=== PATIENT | male | born 1985 | race Caucasian/White ===

== ENCOUNTER → 2016-07-02 | Outpatient (CLI) | payer OTHER ==
--- NOTE | 2016-07-02 16:33 | XR ---
EXAMINATION TYPE: XR chest 2V DATE OF EXAM: 07/02/2016 4:27 PM COMPARISON: 01/19/2014 INDICATION: Chest pain TECHNIQUE: Single frontal view of the chest is obtained. FINDINGS: The heart size is normal. The pulmonary vasculature is normal. The lungs are clear. Sternotomy wires are in the midline. IMPRESSION: 1. No acute pulmonary process.
== END | disposition home or self-care (01) ==
LOC: RADXRMAIN 16:11
PROVIDERS: ATTEND Family Medicine
DX: R07.9 Chest pain, unspecified (principal)
CPT/HCPCS: 71020

== ENCOUNTER → 2016-07-05 | Outpatient (CLI) | payer OTHER ==
[2016-07-05 11:14] LABS: CH 30.4; CHCM 34.5; HCT 49.5 % (39.0-53.0); HDW 2.78; HGB 16.5 gm/dL (13.0-17.5); MCH 29.5 pg (25.0-35.0); MCHC 33.3 g/dL (31.0-37.0); MCV 88.4 fL (80.0-100.0); Mean Platelet Volume 6.8; RDW 13.1 % (11.5-15.5); WBC 4.3 k/uL (3.8-10.6)
[2016-07-05 11:24] LABS: ALT 70 U/L (21-72); AST 39 U/L (17-59); Alkaline Phosphatase 80 U/L (38-126); Anion Gap 10 mmol/L; Blood Urea Nitrogen 15 mg/dL (9-20); Calcium 9.8 mg/dL (8.4-10.2); Carbon Dioxide 27 mmol/L (22-30); Chloride 104 mmol/L (98-107); Cholesterol 233 mg/dL (<200); Creatine Kinase 130 U/L (55-170); Glucose 94 mg/dL (74-99); HDL Cholesterol 53 mg/dL (40-60); LDH 585 U/L (313-618); Non-African American GFR(MDRD) >60 (>60 ml/min/1.73 sqM); Potassium 4.4 mmol/L (3.5-5.1); Sodium 141 mmol/L (137-145); Total Bilirubin 0.8 mg/dL (0.2-1.3); Total Protein 7.6 g/dL (6.3-8.2); Triglycerides 164 mg/dL (<150)
== END ==
LOC: LABWHC1 10:42
PROVIDERS: ATTEND Family Medicine
DX: R07.9 Chest pain, unspecified (principal)
CPT/HCPCS: 36415; 80053; 80061; 82550; 83615; 84443; 84484; 85027

== ENCOUNTER 2016-11-16 17:20 | Emergency (ER) | payer OTHER ==
[2016-11-16] MEDS ORDERED: SODIUM CHLORIDE 0.9% 1,000 ML IV STA (17:41)
[2016-11-16] MEDS ORDERED: KETOROLAC 30 MG/ML 1 ML VIAL IVP STA (17:41)
--- NOTE | 2016-11-16 17:46 | ED ---
Chest Pain HPI - General Chief Complaint: Chest Pain Stated Complaint: Chest Pain Time Seen by Provider: 11/16/16 17:33 Source: patient Mode of arrival: wheelchair Limitations: no limitations - History of Present Illness Initial Comments: 28-year-old male with history of thoracic surgery for a cancerous tumor states that he's had some intermittent chest pain for the past month. Patient reports that starting on the right side underneath his pectoral muscle. He reports he size primary care doctor in urgent care who sent him here. They're concerned he may have a blood clot. He denies any shortness of breath. He does have a mild cough but is a smoker. He states that the pain occasionally radiate around towards his right shoulder. He denies any nausea or vomiting or abdominal pain. Patient reports that they use no specific movements that cause the pain to be worse. He has no sore throat, no dysphagia, no fever or chills. Patient rates the pain as a 3 out of 10 however starting times it will become a 5 out of 10. - Related Data Home Medications Medication Instructions Recorded Confirmed Ranitidine HCl [Zantac] 150 mg PO DAILY 01/19/14 10/11/15 Previous Rx's Medication Instructions Recorded Ibuprofen [Motrin] 600 mg PO Q6HR PRN #15 tab 11/16/16 methylPREDNISolone Dose Pack 4 mg PO DIRECTED #21 package 11/16/16 [Medrol Dose Pack] Allergies Allergy/AdvReac Type Severity Reaction Status Date / Time No Known Allergies Allergy Verified 11/16/16 17:34 Review of Systems ROS Statement: Those systems with pertinent positive or pertinent negative responses have been documented in the HPI. ROS Other: All systems not noted in ROS Statement are negative. EKG Findings - EKG Comments: EKG Findings:: EKG shows a sinus rhythm. Possible left atrial enlargement. Ventricular rate of 76 bpm. Verbal 166 ms. QRS ration 96 ms. QT QTc is 34/ 432 ms. No evidence of ST elevation or T-wave inversion. No intubation or ventricular arrhythmias. 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 No acute distress. Limitations: no limitations General appearance: alert, in no apparent distress Head exam: Present: atraumatic Eye exam: Present: normal appearance, PERRL, EOMI. Absent: scleral icterus, conjunctival injection, periorbital swelling ENT exam: Present: normal exam, mucous membranes moist Neck exam: Present: normal inspection. Absent: tenderness, meningismus, lymphadenopathy Respiratory exam: Present: normal lung sounds bilaterally. Absent: respiratory distress, wheezes, rales, rhonchi, stridor Cardiovascular Exam: Present: regular rate, normal rhythm, normal heart sounds. Absent: systolic murmur, diastolic murmur, rubs, gallop, clicks GI/Abdominal exam: Present: soft, normal bowel sounds. Absent: distended, tenderness, guarding, rebound, rigid Extremities exam: Present: normal inspection, full ROM, normal capillary refill. Absent: tenderness, pedal edema, joint swelling, calf tenderness Back exam: Present: normal inspection Neurological exam: Present: alert, oriented X3, CN II-XII intact Psychiatric exam: Present: normal affect, normal mood Skin exam: Present: warm, dry, intact, normal color. Absent: rash Course Vital Signs 11/16/16 11/16/16 11/16/16 17:25 17:50 19:18 Temperature 97.9 F 98.7 F Pulse Rate 81 80 71 Respiratory 20 18 18 Rate Blood Pressure 123/71 129/73 146/65 O2 Sat by Pulse 99 98 98 Oximetry Chest Pain MDM - MDM 28-year-old male with history of thoracic surgery for a cancerous tumor states that he's had some intermittent chest pain for the past month. Patient reports that starting on the right side underneath his pectoral muscle. He reports he size primary care doctor in urgent care who sent him here. They're concerned he may have a blood clot. He denies any shortness of breath. He does have a mild cough but is a smoker. He states that the pain occasionally radiate around towards his right shoulder. He denies any nausea or vomiting or abdominal pain. His x-rays are reviewed and normal. No evidence of any acute changes. Patient' s lab work was reviewed and shows no evidence of any acute process. D-dimer and cardiac enzymes are negative. Given the length of symptoms if there was concern for blood clot or any other issues and lab work at this time. Patient reports that he occasionally feels like a sharp shooting pain rates from his right axilla for distress. Discussed it could be some neuropathy underlying scar tissue inflammation from his previous surgery. Patient will be discharged with steroids and temperature medicine. Discussed close follow-up with primary care provider. Patient agrees to treatment plan will comply. Return parameters were discussed. Disposition Clinical Impression: Atypical chest pain, Costochondral chest pain Disposition: HOME SELF-CARE Condition: Good Instructions: Costochondritis (ED), Chest Pain (ED) Additional Instructions: Patient denies follow-up with primary care provider. Take medications as prescribed. Return to the emergency department if any alarming signs or symptoms occur. Prescriptions: Ibuprofen [Motrin] 600 mg PO Q6HR PRN #15 tab PRN Reason: Pain methylPREDNISolone Dose Pack [Medrol Dose Pack] 4 mg PO DIRECTED #21 package Referrals: Darío Ojeda DO [Primary Care Provider] - 1-2 days Time of Disposition: 19:25
[2016-11-16 17:52] VITALS: RESP 18
[2016-11-16 18:05] LABS: Basophils # (A) 0.1 k/uL (0-0.2); Basophils % (A) 1 %; CHCM 35.2; Eosinophils # (A) 0.1 k/uL (0-0.7); Eosinophils % (A) 2 %; HCT 46.6 % (39.0-53.0); HDW 2.76; HGB 16.5 gm/dL (13.0-17.5); Luc # (Auto) 0.17; Luc % (Auto) 3; Lymphocytes # (A) 1.7 k/uL (1.0-4.8); Lymphocytes % (A) 28 %; MCH 30.4 pg (25.0-35.0); MCHC 35.5 g/dL (31.0-37.0); MCV 85.6 fL (80.0-100.0); Mean Platelet Volume 6.7; Monocytes # (A) 0.6 k/uL (0-1.0); Monocytes % (A) 11 %; Neutrophils # (A) 3.2 k/uL (1.3-7.7); Neutrophils % (A) 55 %; RBC 5.44 m/uL (4.30-5.90); RDW 13.1 % (11.5-15.5); WBC 5.9 k/uL (3.8-10.6); WBC (Perox) 5.89
[2016-11-16 18:11] LABS: ALT 76 U/L (21-72); AST 36 U/L (17-59); Alkaline Phosphatase 96 U/L (38-126); Amylase 48 U/L (30-110); Anion Gap 9 mmol/L; Blood Urea Nitrogen 16 mg/dL (9-20); Calcium 9.7 mg/dL (8.4-10.2); Carbon Dioxide 26 mmol/L (22-30); Chloride 103 mmol/L (98-107); Glucose 83 mg/dL (74-99); Magnesium 2.2 mg/dL (1.6-2.3); Non-African American GFR(MDRD) >60 (>60 ml/min/1.73 sqM); Potassium 4.2 mmol/L (3.5-5.1); Sodium 138 mmol/L (137-145); Total Bilirubin 0.4 mg/dL (0.2-1.3); Total Protein 7.2 g/dL (6.3-8.2)
[2016-11-16 18:17] LABS: Partial Thromboplastin Time 25.5 sec (22.0-30.0); Prothrombin Time 10.2 sec (9.0-12.0)
[2016-11-16 18:21] LABS: Creatine Kinase 138 U/L (55-170)
[2016-11-16 18:34] LABS: Creatine Kinase MB 1.3 ng/mL (0.0-2.4); Troponin I <0.012 ng/mL (0.000-0.034)
--- NOTE | 2016-11-16 18:35 | XR ---
EXAMINATION TYPE: XR chest 2V DATE OF EXAM: 11/16/2016 COMPARISON: 07/02/2016 HISTORY: Chest pain TECHNIQUE: Frontal and lateral views of the chest are obtained. FINDINGS: Heart and mediastinum are normal. Lungs are clear. Diaphragm is normal. There are sternal wires. Bony thorax is intact. There are chest leads. IMPRESSION: Normal chest. No change.
[2016-11-16 19:19] VITALS: BP 146/65; TEMP 98.7
[2016-11-16 19:38] VITALS: PULSE 75
== END 2016-11-16 19:38 | disposition home or self-care (01) ==
LOC: EC 17:20
DX: R07.89 Other chest pain (principal); Z79.899 Other long term (current) drug therapy; Z87.891 Personal history of nicotine dependence
CPT/HCPCS: 99285; 96374; 96361; 36415; 93005; 85379; 83880; 80053; 82150; 82550; 82553; 83690; 83735; 84484; 85025; 85610; 85730; 71020; J1885

== ENCOUNTER 2017-05-17 18:28 | Emergency (ER) | payer OTHER ==
[2017-05-17] MEDS ORDERED: ASPIRIN 81 MG PO STA (18:36)
[2017-05-17 18:58] LABS: Basophils # (A) 0.1 k/uL (0-0.2); Basophils % (A) 1 %; Eosinophils # (A) 0.1 k/uL (0-0.7); Eosinophils % (A) 3 %; HCT 50.8 % (39.0-53.0); HGB 16.2 gm/dL (13.0-17.5); Lymphocytes # (A) 1.5 k/uL (1.0-4.8); Lymphocytes % (A) 26 %; MCH 28.7 pg (25.0-35.0); MCHC 31.9 g/dL (31.0-37.0); Mean Platelet Volume 7.3; Monocytes # (A) 0.6 k/uL (0-1.0); Monocytes % (A) 11 %; Neutrophils # (A) 3.2 k/uL (1.3-7.7); Neutrophils % (A) 57 %; Platelet Count 232 k/uL (150-450); RBC 5.64 m/uL (4.30-5.90); RDW 14.3 % (11.5-15.5); WBC 5.6 k/uL (3.8-10.6)
[2017-05-17 19:06] LABS: ALT 69 U/L (21-72); AST 34 U/L (17-59); Albumin 4.3 g/dL (3.5-5.0); Alkaline Phosphatase 83 U/L (38-126); Anion Gap 9 mmol/L; Blood Urea Nitrogen 15 mg/dL (9-20); Calcium 9.6 mg/dL (8.4-10.2); Carbon Dioxide 27 mmol/L (22-30); Chloride 104 mmol/L (98-107); Glucose 88 mg/dL (74-99); Lipase 217 U/L (23-300); Magnesium 2.2 mg/dL (1.6-2.3); Potassium 4.1 mmol/L (3.5-5.1); Sodium 140 mmol/L (137-145); Total Bilirubin 0.3 mg/dL (0.2-1.3); Total Protein 7.3 g/dL (6.3-8.2)
--- NOTE | 2017-05-17 19:08 | XR ---
EXAMINATION TYPE: XR chest 2V DATE OF EXAM: 05/17/2017 COMPARISON: 11/16/2016 HISTORY: Chest pain TECHNIQUE: Frontal and lateral views of the chest are obtained. FINDINGS: Heart and mediastinum are normal. Lungs are clear. There are sternal wires. There are ches t leads. Costophrenic angles are clear. IMPRESSION: No active cardiopulmonary disease. Normal heart. No change.
[2017-05-17 19:16] LABS: Creatine Kinase 104 U/L (55-170)
[2017-05-17 19:24] LABS: D-Dimer 0.2 mg/L FEU (<0.60)
[2017-05-17 19:28] LABS: INR 1.1 (<1.2); Partial Thromboplastin Time 25.4 sec (22.0-30.0); Prothrombin Time 10.6 sec (9.0-12.0)
[2017-05-17 19:29] LABS: Creatine Kinase MB 0.6 ng/mL (0.0-2.4); Troponin I <0.012 ng/mL (0.000-0.034)
[2017-05-17] MEDS ORDERED: RX INFO: IV CONTRAST WAS GIVEN 1 EACH MISC MISCELLANE PRN (19:33)
--- NOTE | 2017-05-17 19:41 | ED ---
Chest Pain HPI - General Chief Complaint: Chest Pain Stated Complaint: Chest pain Time Seen by Provider: 05/17/17 18:36 Source: patient, RN notes reviewed Mode of arrival: wheelchair Limitations: no limitations - History of Present Illness Initial Comments: 31-year-old male presents emergency Department chief complaint chest pain. Patient states she's been having on and off chest pain last 1 week. Patient states he has a pressure sinus left side with a sharp stabbing occasional pain. He states it's nonradiating. Patient states he went to urgent care today he had chest x-ray EKG which was unremarkable center for further evaluation. Patient states that he has a history of Bactrim so cancer and states that he had a mass removed from his chest by Dr. Short 9 years ago. He has had no recent chest x-ray other than the one today and no recent CTs. Patient states his been trying to get into [facility]call though he has not been able to. Patient denies any associated shortness breath, nausea, vomiting diarrhea constipation. No fevers or chills. Patient states that he does have a family history of heart disease. Patient states his former smoker. - Related Data Home Medications Medication Instructions Recorded Confirmed Ranitidine HCl [Zantac] 150 mg PO DAILY 01/19/14 05/17/17 Cyanocobalamin [Vitamin B-12] 500 mcg PO DAILY 05/17/17 05/17/17 Multivitamins, Thera [Multivitamin 1 tab PO DAILY 05/17/17 05/17/17 (formulary)] Allergies Allergy/AdvReac Type Severity Reaction Status Date / Time No Known Allergies Allergy Verified 05/17/17 18:51 Review of Systems ROS Statement: Those systems with pertinent positive or pertinent negative responses have been documented in the HPI. ROS Other: All systems not noted in ROS Statement are negative. 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 Absent: tenderness, meningismus, lymphadenopathy Respiratory exam: Present: normal lung sounds bilaterally, chest wall tenderness. Absent: respiratory distress, wheezes, rales, rhonchi, stridor Cardiovascular Exam: Present: regular rate, normal rhythm, normal heart sounds. Absent: systolic murmur, diastolic murmur, rubs, gallop, clicks Back exam: Absent: CVA tenderness (R), CVA tenderness (L) Skin exam: Present: warm, dry, intact, normal color. Absent: rash Course Vital Signs 05/17/17 05/17/17 05/17/17 18:31 18:49 20:02 Temperature 97.1 F L Pulse Rate 73 70 75 Respiratory 18 16 181 H Rate Blood Pressure 139/77 126/78 128/78 O2 Sat by Pulse 98 99 98 Oximetry Chest Pain MDM - MDM 31-year-old male present emergency department for chest pain on and off for last week. Patient had extensive workup here including chest x-ray, EKG, lab work and CT of the chest. There is no acute abnormality's. Most likely is pleurisy versus costochondritis. This is an atypical chest pain and patient will be discharged. Case discussed with Dr. David. I do recommend patient follow-up with primary care physician and persists he may need further evaluation with parathoracic as ceasing them in the past or discuss possible echo/Stress test if concerns for cardiac. Disposition Clinical Impression: Atypical chest pain Disposition: HOME SELF-CARE Condition: Stable Instructions: Chest Pain (ED) Additional Instructions: Please return to the Emergency Department if symptoms worsen or any other concerns. Referrals: Darío Ojeda DO [Primary Care Provider] - 1-2 days Time of Disposition: 20:32
--- NOTE | 2017-05-17 20:12 | CT ---
EXAMINATION TYPE: CT chest angio for PE DATE OF EXAM: 05/17/2017 COMPARISON: NONE HISTORY: SOB and chest tightness x1 week. CT DLP: 363.6 mGycm Automated exposure control for dose reduction was used. CONTRAST: CT Chest for pulmonary embolism performed with with IV Contrast, patient injected with 78 mL of Omnip aque 300. There are 3-D post processed images. FINDINGS: The lungs are clear of infiltrate. There is no evidence of a pulmonary mass. There is no pleural effu andrez. There is no pericardial effusion. There is no sign of aortic aneurysm or dissection. There is no evidence of a filling defect in the pulmonary arteries. There is no mediastinal adenopath y. There are no hilar masses. The bony thorax is intact. IMPRESSION: Negative CT angiogram of the chest. No evidence of pulmonary embolism.
[2017-05-17 20:45] VITALS: RESP 18
[2017-05-17 20:47] VITALS: BP 124/61; PULSE 73; TEMP 97
== END 2017-05-17 20:45 | disposition home or self-care (01) ==
LOC: EC 18:28
DX: R07.89 Other chest pain (principal); Z85.118 Personal history of other malignant neoplasm of bronchus and lung; Z85.89 Personal history of malignant neoplasm of other organs and systems; Z87.891 Personal history of nicotine dependence; Z79.899 Other long term (current) drug therapy
CPT/HCPCS: 36415; 93005; 85379; 80053; 82550; 82553; 83690; 83735; 84484; 85025; 85610; 85730; 71046; 71275; 99285; Q9967

== ENCOUNTER 2018-03-20 20:52 | Emergency (ER) | payer OTHER ==
[2018-03-20] MEDS ORDERED: SODIUM CHLORIDE 0.9% 1,000 ML IV STA (22:14)
[2018-03-20 22:46] LABS: Basophils % (A) 1 %; Eosinophils # (A) 0.2 k/uL (0-0.7); Eosinophils % (A) 3 %; HCT 46.7 % (39.0-53.0); HGB 16.3 gm/dL (13.0-17.5); Lymphocytes # (A) 1.4 k/uL (1.0-4.8); Lymphocytes % (A) 27 %; MCH 30.3 pg (25.0-35.0); MCHC 34.9 g/dL (31.0-37.0); MCV 86.8 fL (80.0-100.0); Monocytes # (A) 0.4 k/uL (0-1.0); Monocytes % (A) 8 %; Neutrophils # (A) 3.1 k/uL (1.3-7.7); Neutrophils % (A) 60 %; Platelet Count 220 k/uL (150-450); RBC 5.38 m/uL (4.30-5.90); RDW 12.9 % (11.5-15.5); WBC 5.1 k/uL (3.8-10.6)
[2018-03-20 22:55] LABS: ALT 77 U/L (21-72); AST 54 U/L (17-59); Albumin 4.2 g/dL (3.5-5.0); Alkaline Phosphatase 83 U/L (38-126); Anion Gap 8 mmol/L; Blood Urea Nitrogen 15 mg/dL (9-20); Calcium 9.8 mg/dL (8.4-10.2); Carbon Dioxide 28 mmol/L (22-30); Chloride 105 mmol/L (98-107); Glucose 113 mg/dL (74-99); Lipase 98 U/L (23-300); Potassium 4.1 mmol/L (3.5-5.1); Sodium 141 mmol/L (137-145); Total Bilirubin 0.5 mg/dL (0.2-1.3); Total Protein 7.2 g/dL (6.3-8.2)
--- NOTE | 2018-03-20 23:26 | ED ---
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 Patient reports that for the past few weeks is been experiencing right-sided abdominal pain. He was evaluated in our emergency department last week had labs and a computed tomography scan with no acute findings. Patient followed up with his primary care but today had persistent pain so came back for reevaluation. states that given his history of a malignant cancer he is very anxious about having any abdominal pain. He describes the pain is a constant ache in his right upper quadrant occasion the right lower quadrant with occasional episodes of stabbing. The pain is not associated with nausea, vomiting. The pain doesn't seem to be related to when or what he eats. He's had no change in bowel or bladder habits. No fevers or chills. He denies any associated complaints. - Related Data Home Medications Medication Instructions Recorded Confirmed Omeprazole Magnesium [PriLOSEC OTC] 20 mg PO DAILY PRN 03/15/18 03/15/18 Previous Rx's Medication Instructions Recorded Famotidine [Pepcid] 20 mg PO DAILY #30 tablet 03/15/18 Allergies Allergy/AdvReac Type Severity Reaction Status Date / Time No Known Allergies Allergy Verified 03/20/18 21:12 Review of Systems ROS Statement: Those systems with pertinent positive or pertinent negative responses have been documented in the HPI. ROS Other: All systems not noted in ROS Statement are negative. Past Medical History Past Medical History: Cancer Additional Past Medical History / Comment(s): CANCER- germ cell carcinoma History of Any Multi-Drug Resistant Organisms: None Reported Past Surgical History: No Surgical Hx Reported Additional Past Surgical History / Comment(s): MALIGNANT TUMOR REMOVED FROM CHEST CAVITY, RIGHT LUNG Past Psychological History: Anxiety Smoking Status: Former smoker Past Alcohol Use History: Occasional Past Drug Use History: None Reported General Exam - General Exam Comments Initial Comments: Physical Exam GENERAL: Patient is well-developed and well-nourished. Patient is nontoxic and well- hydrated and is in no distress. HENT: Normocephalic, Atraumatic. EYES: PERRL, EOMI PULMONARY: Unlabored respirations. No audible rales rhonchi or wheezing was noted. CARDIOVASCULAR: There is a regular rate and rhythm without any murmurs gallops or rubs. ABDOMEN: Soft and nontender with normal bowel sounds. SKIN: Skin is clear with no lesions or rashes and otherwise unremarkable. : Deferred NEUROLOGIC: Patient is alert and oriented x3. Moving all extremities spontaneously MUSCULOSKELETAL: Normal extremities with adequate strength and full range of motion. No lower extremity swelling or edema. No calf tenderness. PSYCHIATRIC: Normal psychiatric evaluation. Limitations: no limitations Limitations: no limitations Course Vital Signs 03/20/18 03/21/18 21:10 01:54 Temperature 98.0 F 98.3 F Pulse Rate 93 71 Respiratory 18 19 Rate Blood Pressure 134/77 125/92 O2 Sat by Pulse 98 99 Oximetry Medical Decision Making - Medical Decision Making Patient was seen and evaluated, history was obtained from patient Repeat labs were ordered Ultrasound of the gallbladder was ordered Labs and ultrasound were unremarkable Results were discussed with the patient who is resting comfortably and feels reassured area and I discussed with patient the possibility that this is related to GERD or ulcer disease, I recommended she needed a PPI he started last week, maintain a bland diet, avoid spicy or irritating foods and follow up with gastroenterology for possible endoscopy. Patient is agreeable. Return parameters were discussed patient discharged home in stable condition. - Lab Data Result diagrams: 03/20/18 22:30 03/20/18 22:30 Lab Results 03/20/18 03/20/18 03/20/18 Range/Units 22:30 22:30 22:35 WBC 5.1 (3.8-10.6) k/uL RBC 5.38 (4.30-5.90) m/uL Hgb 16.3 (13.0-17.5) gm/dL Hct 46.7 (39.0-53.0) % MCV 86.8 (80.0-100.0) fL MCH 30.3 (25.0-35.0) pg MCHC 34.9 (31.0-37.0) g/dL RDW 12.9 (11.5-15.5) % Plt Count 220 (150-450) k/uL Neutrophils % 60 % Lymphocytes % 27 % Monocytes % 8 % Eosinophils % 3 % Basophils % 1 % Neutrophils # 3.1 (1.3-7.7) k/uL Lymphocytes # 1.4 (1.0-4.8) k/uL Monocytes # 0.4 (0-1.0) k/uL Eosinophils # 0.2 (0-0.7) k/uL Basophils # 0.0 (0-0.2) k/uL Sodium 141 (137-145) mmol/L Potassium 4.1 (3.5-5.1) mmol/L Chloride 105 (98-107) mmol/L Carbon Dioxide 28 (22-30) mmol/L Anion Gap 8 mmol/L BUN 15 (9-20) mg/dL Creatinine 0.83 (0.66-1.25) mg/dL Est GFR (CKD-EPI)AfAm >90 (>60 ml/min/1.73 sqM) Est GFR (CKD-EPI)NonAf >90 (>60 ml/min/1.73 sqM) Glucose 113 H (74-99) mg/dL Calcium 9.8 (8.4-10.2) mg/dL Total Bilirubin 0.5 (0.2-1.3) mg/dL AST 54 (17-59) U/L ALT 77 H (21-72) U/L Alkaline Phosphatase 83 (38-126) U/L Total Protein 7.2 (6.3-8.2) g/dL Albumin 4.2 (3.5-5.0) g/dL Lipase 98 (23-300) U/L Urine Color Yellow Urine Appearance Clear (Clear) Urine pH 6.5 (5.0-8.0) Ur Specific Wallace 1.014 (1.001-1.035) Urine Protein Negative (Negative) Urine Glucose (UA) Negative (Negative) Urine Ketones Negative (Negative) Urine Blood Negative (Negative) Urine Nitrite Negative (Negative) Urine Bilirubin Negative (Negative) Urine Urobilinogen <2.0 (<2.0) mg/dL Ur Leukocyte Esterase Negative (Negative) Disposition Clinical Impression: Abdominal pain Disposition: HOME SELF-CARE Condition: Good Instructions: Abdominal Pain (ED) Is patient prescribed a controlled substance at d/c from ED?: No Referrals: Darío Ojeda DO [Primary Care Provider] - 1-2 days Braeden Cortez MD [STAFF PHYSICIAN] - 1-2 days Time of Disposition: 01:05
[2018-03-20 23:27] LABS: Appearance,Urine Clear (Clear); Bilirubin,Urine Negative (Negative); Blood,Urine Negative (Negative); Color,Urine Yellow; Glucose,Urine (UA) Negative (Negative); Ketones,Urine Negative (Negative); Leukocyte Esterase,Urine Negative (Negative); Nitrite,Urine Negative (Negative); PH, Urine 6.5 (5.0-8.0); Protein,Urine Negative (Negative); Specific Gravity,Urine 1.014 (1.001-1.035); Urobilinogen,Urine <2.0 mg/dL (<2.0)
--- NOTE | 2018-03-21 00:37 | US ---
EXAMINATION TYPE: US gallbladder DATE OF EXAM: 03/21/2018 COMPARISON: NONE CLINICAL HISTORY: Pain. Pain EXAM MEASUREMENTS: Liver Length: 16.8 cm Gallbladder Wall: 0.2 cm CBD: 0.3 cm Right Kidney: 11.4 x 4.7 x 4.6 cm Pancreas: Obscured by bowel gas Liver: wnl Gallbladder: wnl Evidence for sonographic Sebastian's sign: No CBD: wnl Right Kidney: wnl IMPRESSION: Negative right upper quadrant ultrasound exam. No gallstones or dilated ducts.
[2018-03-21 02:02] VITALS: BP 125/92; PULSE 71; RESP 19; TEMP 98.3
--- NOTE | 2018-03-21 15:08 | XR ---
EXAMINATION TYPE: XR KUB DATE OF EXAM: 03/20/2018 COMPARISON: 10/21/2009 HISTORY: Right flank pain TECHNIQUE: 2 views FINDINGS: There is no sign of intestinal obstruction or pneumoperitoneum. Fecal pattern is normal. Albina ng bases are clear. There are no pathologic calcifications over the kidneys. IMPRESSION: Nonacute abdomen. No adverse change.
== END 2018-03-21 01:54 | disposition home or self-care (01) ==
LOC: EC 20:52
DX: R10.11 Right upper quadrant pain (principal); R10.31 Right lower quadrant pain; Z87.891 Personal history of nicotine dependence; Z85.47 Personal history of malignant neoplasm of testis; Z98.890 Other specified postprocedural states
CPT/HCPCS: 36415; 74018; 76705; 80053; 81003; 83690; 85025; 96360; 96361; 99284

== ENCOUNTER 2023-02-19 15:59 | Emergency (ER) | payer OTHER ==
[2023-02-19 16:20] VITALS: BP 142/95; PULSE 86; RESP 18; TEMP 98
[2023-02-19] MEDS ORDERED: FAMOTIDINE 20 MG/2 ML VIAL IV STA (16:27)
[2023-02-19] MEDS ORDERED: ONDANSETRON 4 MG/2 ML VIAL IVP STA (16:27)
[2023-02-19] MEDS ORDERED: SODIUM CHLORIDE 0.9% 1,000 ML IV STA (16:27)
--- NOTE | 2023-02-19 16:48 | ED ---
Recheck HPI - General Chief Complaint: Recheck/Abnormal Lab/Rx Stated Complaint: ingest walnut husk-Dizziness, lethargic Time Seen by Provider: 02/19/23 16:10 Source: patient, RN notes reviewed Mode of arrival: ambulatory Limitations: no limitations - History of Present Illness Initial Comments: This is a 37 year old male who presents to the emergency department for walnut husk ingestion. States that he was looking at videos online saying that ingesting walnuts offered multiple health benefits. He proceeded to do this and states that he consumed about half of the shell and started to feel very ill and nauseous. He does not feel like it got stuck in his throat. States that he feels "high". He did research on this and found that Juglone was a potentially toxic ingredient in walnut shells, and is concerned about exposure to that. Denies any specific abdominal pain, chest pain, or shortness of breath. - Related Data Home Medications Medication Instructions Recorded Confirmed Omeprazole Magnesium [PriLOSEC OTC] 20 mg PO DAILY PRN 03/15/18 03/15/18 Previous Rx's Medication Instructions Recorded Famotidine [Pepcid] 20 mg PO DAILY #30 tablet 03/15/18 Allergies Allergy/AdvReac Type Severity Reaction Status Date / Time No Known Allergies Allergy Verified 02/19/23 16:09 Review of Systems ROS Statement: Those systems with pertinent positive or pertinent negative responses have been documented in the HPI. ROS Other: All systems not noted in ROS Statement are negative. 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 Absent: respiratory distress, wheezes, rales, rhonchi, stridor Cardiovascular Exam: Present: regular rate, normal rhythm, normal heart sounds. Absent: systolic murmur, diastolic murmur, rubs, gallop, clicks GI/Abdominal exam: Present: soft, normal bowel sounds. Absent: distended, tenderness, guarding, rebound, rigid Neurological exam: Present: alert, oriented X3, CN II-XII intact Psychiatric exam: Present: normal affect, normal mood Skin exam: Present: warm, dry, intact, normal color. Absent: rash Course Vital Signs 02/19/23 16:07 Temperature 98 F Pulse Rate 86 Respiratory 18 Rate Blood Pressure 142/95 O2 Sat by Pulse 99 Oximetry Medical Decision Making - Medical Decision Making This is a 37-year-old male who presents to the emergency department for nausea from walnut husk ingestion. Was pt. sent in by a medical professional or institution? @ -No Did you speak to anyone other than the patient for history? @ -No Did you review nursing and triage notes? @ -Yes, and I agree, it is accurate with regards to the patient's symptoms. Were old charts reviewed? @ -No Differential Diagnosis? @ -Differential Nausea and Vomiting: Gastroenteritis, cholecystitis, appendicitis, pancreatitis, migraine, benign positional vertigo, food borne illness, pyelonephritis, irritable bowel syndrome, influenza, Covid, GERD, incarcerated hernia, intestinal obstruction, this is not meant to be an all-inclusive list. EKG interpreted by me (3pts min.)? @ -Not obtained X-rays interpreted by me (1pt min.)? @ -Not obtained CT interpreted by me (1pt min.)? @ -Not obtained U/S interpreted by me (1pt. min.)? @ -Not obtained What testing was considered but not performed? (CT, X-rays, U/S, labs)? Why? @ -None What meds were considered but not given? Why? @ -None Did you discuss the management of the patient with other professionals? @ -No Did you reconcile home meds? @ -No Was smoking cessation discussed for >3mins.? @ -No Was critical care preformed (if so, how long)? @ -No Were there social determinants of health that impacted care today? How? (Homelessness, low income, unemployed, alcoholism, drug addiction, transportation, low edu. Level, literacy, decrease access to med. care, group home, rehab)? @ -No Was there de-escalation of care discussed even if they declined? (Discuss DNR or withdrawal of care, Hospice)? @ -No What co-morbidities impacted this encounter? (DM, HTN, Smoking, COPD, CAD, Cancer, CVA, Hep., AIDS, mental health diagnosis, sleep apnea, morbid obesity)? @ -None Was patient admitted / discharged? @ -Discharged. Urine drug test negative. Patient given IV fluids, Zofran, and famotidine with significant improvement in symptoms. We did contact poison control, who advised that no additional workup or monitoring needed to be done and the patient could be safely discharged home. Patient is in agreement with this plan. He was given a starter pack for Zofran and discharged home in stable condition. Advised he slowly advance his diet as tolerated, remain well- hydrated, and follow up with his primary care provider. Undiagnosed new problem with uncertain prognosis? @ -None Drug Therapy requiring intensive monitoring for toxicity (Heparin, Nitro, Insulin, Cardizem)? @ -None Were any procedures done? @ -None Diagnosis/symptom? @ -Nausea Acute, or Chronic, or Acute on Chronic? @ -Acute Uncomplicated (without systemic symptoms) or Complicated (systemic symptoms)? @ -Uncomplicated Side effects of treatment? @ -None Exacerbation, Progression, or Severe Exacerbation] @ -Not applicable Poses a threat to life or bodily function? @ -No Return precautions reviewed in depth, the patient is instructed to return to the emergency department with any new, worsening, or concerning symptoms. Patient verbalized understanding. This case was discussed in detail with the attending ED physician, Dr. Cassidy. Presentation, findings, and treatment plan discussed in detail as well. - Lab Data Lab Results 02/19/23 Range/Units 16:33 Urine Opiates Screen Not Detected (NotDetected) Ur Oxycodone Screen Not Detected (NotDetected) Urine Methadone Screen Not Detected (NotDetected) Ur Propoxyphene Screen Not Detected (NotDetected) Ur Barbiturates Screen Not Detected (NotDetected) U Tricyclic Antidepress Not Detected (NotDetected) Ur Phencyclidine Scrn Not Detected (NotDetected) Ur Amphetamines Screen Not Detected (NotDetected) U Methamphetamines Scrn Not Detected (NotDetected) U Benzodiazepines Scrn Not Detected (NotDetected) Urine Cocaine Screen Not Detected (NotDetected) U Marijuana (THC) Screen Not Detected (NotDetected) Disposition Clinical Impression: Nausea Disposition: HOME SELF-CARE Instructions (If sedation given, give patient instructions): Acute Nausea and Vomiting (ED) Additional Instructions: Return to the emergency department with any new, worsening, or concerning symptoms. You can take the Zofran up to every 8 hours as needed for nausea and vomiting. Slowly advance your diet as tolerated and remain well-hydrated. Follow up with your primary care provider in 1-2 days. Is patient prescribed a controlled substance at d/c from ED?: No Referrals: Yuliana Witt DO [Primary Care Provider] - 1-2 days
[2023-02-19 16:57] LABS: Amphetamine Screen,Urine Not Detected (NotDetected); Barbiturate Screen,Urine Not Detected (NotDetected); Benzodiazepines Screen,Urine Not Detected (NotDetected); Cocaine Screen,Urine Not Detected (NotDetected); Methadone Screen, Urine Not Detected (NotDetected); Opiate Screen,Urine Not Detected (NotDetected); Oxycodone Screen, Urine Not Detected (NotDetected); Phencyclidine Screen,Urine Not Detected (NotDetected); Tricyclic Antidepressant,Urine Not Detected (NotDetected); Urn Cannabinoid Scrn Not Detected (NotDetected)
[2023-02-19] MEDS ORDERED: ONDANSETRON 4 MG ODT STARTER PACK 2 TAB BTL PO STA (18:28)
== END 2023-02-19 18:43 | disposition home or self-care (01) ==
LOC: EC 15:59
DX: R11.0 Nausea (principal); Z86.59 Personal history of other mental and behavioral disorders
CPT/HCPCS: 80306; 99283; 96374; 96375; 96361; J2405; J3490; S0119